=== PATIENT | male | born 1940 | race Caucasian/White ===

== ENCOUNTER 2024-10-22 08:41 | Day surgery (SDC) | payer MEDICARE ==
[~2024-10-22 08:41] MED LIST: LACTATED RINGERS 1,000 ML IV SCH
[2024-10-22 09:12] VITALS: TEMP 96.8
[2024-10-22] MEDS ORDERED: methylPREDNISolone ACETATE 80 MG/ML 1 ML VIAL ONE (09:45)
[2024-10-22] MEDS ORDERED: IOPAMIDOL M300 15ML VIAL ONE (09:45)
[2024-10-22 10:08] VITALS: BP 141/77; PULSE 72; RESP 18
--- NOTE | 2024-10-22 10:09 | FL ---
EXAMINATION TYPE: FL guided pain mgmt statistic DATE OF EXAM: 10/22/2024 CLINICAL INDICATION: Male, 84 years old with history of Lumbar Epid Inj; PHH, pain TECHNIQUE: Fluoroscopy. COMPARISON: None. FINDINGS: Fluoroscopic guidance was provided during pain relief procedure performed by Dr. Smith . A total of 41.1 seconds of fluoroscopic time was utilized during the procedure and one image was acqu ired. Image acquired shows needle localization the lumbar spine with contrast injection. Degeneration changes of the visualized joints. Total DAP: 0.29316 mGy x m2. IMPRESSION: As Above. [facility], , 10/22/2024 10:07 AM
--- NOTE | 2024-10-22 10:10 | P.PCN ---
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 3-lumbar spinal stenosis POSTOPERATIVE DIAGNOSIS: 1-lumbar degenerative disc disease. 2-lumbar spondylosis with facet arthropathy without myelopathy. 3-lumbar spinal stenosis. PROCEDURE Injection of radio contrast material into L3-4 interspace, interpretation of epidurogram, injection of steroid at L3-4 epidural space under fluoroscopic guidance. ANESTHESIA: Lidocaine 1% subcutaneously. In OR continuous pulse ox, EKG, blood pressure and verbal communication was maintained with the patient. EBL: Minimal PROCEDURE INDICATION: Before the procedure were discussed with the patient detailed procedure, alternatives, complications including infection, bleeding, nerve damage, paralysis all of which could be permanent. Patient understands and all questions were answered. PROCEDURE DESCRIPTION : After getting consent, patient in OR in prone position. Back was prepped with chlorhexidine and draped in sterile fashion. After injecting 10 mL of 1% lidocaine subcutaneously, a 20-gauge Tuohy needle was introduced at L3-4 interspace with loss of resistance technique using a syringe filled with air. Negative CSF, negative blood, negative paresthesia. Needle position was confirmed with AP and lateral view of the fluoroscope. After repeat negative aspiration 2 mL of Omnipaque 200 water soluble contrast was injected. Contrast was noted in the epidural space. No contrast was noted into intrathecal or intravascular space. After repeat negative aspiration 6 mL solution was injected intermittently which consists of 5 mL of preservative-free normal saline mixed with 1 mL of 80 mg Depo-Medrol. Needle was withdrawn intact. Skin was cleansed and Band-Aids was applied. DISPOSITION / PLANS: The patient tolerated the procedure well. No complication. The patient was placed in a supine position and transferred to the recovery area in a stable condition for observation. There was no evidence of lower extremity motor or sensory deficit after the procedure. Patient was discharged from the recovery room after meeting discharge criteria. Home discharge instructions were given to the patient by the staff. The patient was reexamined prior to discharge. The patient will schedule a follow up in the clinic in 2-4 weeks.
== END 2024-10-22 10:30 | disposition home or self-care (01) ==
LOC: ORPAIN 08:41
PROVIDERS: ATTEND Pain Medicine Interventional Pain Medicine
DX: M48.061 Spinal stenosis, lumbar region without neurogenic claudication (principal); M47.816 Spondylosis without myelopathy or radiculopathy, lumbar region; M51.369 Other intervertebral disc degeneration, lumbar region without mention of lumbar back pain or lower extremity pain
CPT/HCPCS: 62323; Q9967; J1010

== ENCOUNTER → 2024-10-31 | Outpatient (CLI) | payer MEDICARE ==
[2024-10-31 18:37] LABS: Basophils # (A) 0.06 X 10*3/uL (0.00-0.10); Basophils % (A) 0.6 %; Eosinophils # (A) 0.05 X 10*3/uL (0.04-0.35); Eosinophils % (A) 0.5 %; HCT 43.3 % (39.6-50.0); HGB 14.3 g/dL (13.0-17.0); Lymphocytes # (A) 1.85 X 10*3/uL (0.90-5.00); Lymphocytes % (A) 17.2 %; MCH 31.8 pg (27.0-32.0); MCV 96.4 FL (80.0-97.0); Mean Platelet Volume 10.8 FL (9.5-12.2); Monocytes # (A) 0.97 X 10*3/uL (0.20-1.00); NRBC Per 100 WBC 0 X 10*3/uL (0.00-0.01); Neutrophils # (A) 7.75 X 10*3/uL (1.80-7.70); Neutrophils % (A) 72.1 %; Platelet Count 238 X 10*3/uL (140-440); RBC 4.49 X 10*6/uL (4.40-5.60); RDW 13.6 % (11.5-14.5); WBC 10.74 X 10*3/uL (4.50-10.00)
[2024-10-31 18:51] LABS: BUN/Creat Ratio 29.43 Ratio (12.00-20.00); Blood Urea Nitrogen 20.6 mg/dL (9.0-27.0); Calcium 8.8 mg/dL (8.7-10.3); Carbon Dioxide 23.9 mmol/L (21.6-31.8); Chloride 108 mmol/L (96-109); Glucose 135 mg/dL (70-110); Sodium 143 mmol/L (135-145)
[2024-10-31 19:07] LABS: INR 0.97 sec (0.93-1.11); Prothrombin Time 11.1 sec (9.9-11.9)
== END | disposition home or self-care (01) ==
LOC: LABPAT 13:28
PROVIDERS: ATTEND Orthopaedic Surgery
DX: Z01.818 Encounter for other preprocedural examination (principal); S32.009A Unspecified fracture of unspecified lumbar vertebra, initial encounter for closed fracture; I10 Essential (primary) hypertension; I51.7 Cardiomegaly; R58 Hemorrhage, not elsewhere classified; X58.XXXA Exposure to other specified factors, initial encounter; Z79.899 Other long term (current) drug therapy; Z22.322 Carrier or suspected carrier of Methicillin resistant Staphylococcus aureus
CPT/HCPCS: 80048; 85025; 85610; 86850; 86900; 86901; 87070; 93005

== ENCOUNTER → 2024-12-06 | Outpatient (CLI) | payer MEDICARE ==
--- NOTE | 2024-12-06 16:34 | BD ---
EXAMINATION TYPE: Axial Bone Density DATE OF EXAM: 12/06/2024 CLINICAL HISTORY: 84 years old Male. ICD-10 CODE: M85.88 DISORDER OF BONE , Additional History: Height: 66.5 Weight: 212.2 FRAX RISK QUESTIONS: Alcohol (3 or more units per day): no Family History (Parent hip fracture): no Glucocorticoids (More than 3mos): no (Ex: prednisone, prednisolone, methylprednisolone, dexamethasone, and hydrocortisone). History of Fracture in Adulthood: knee lt wrist, finger Secondary Osteoporosis: 1. Type 1 Diabetes: no 2. Hyperthyroidism: no 3. Menopause before 45: na 4. Malnutrition: no 5. Chronic liver disease: no Rheumatoid Arthritis: no Current Tobacco Use: no RISK FACTORS HISTORY OF: Hip Fracture (Right/Left): no Spine Fracture: no History of Wrist Fracture: lt wrist When: child Surgery to Spine/Hip(right/left)/Wrist (right/left): no MEDICATIONS: Thyroid Medications: no Osteoporosis Medications: EXAM MEASUREMENTS: Bone mineral densitometry was performed using the [employer] System. Bone mineral density as measured about the Lumbar spine is: ----- L1-L4(G/cm2): 1.060 T Score Values are as follows: ----- L1: -2.7 ----- L2: 0.3 ----- L3: -0.6 ----- L4: -0.6 ----- L1-L4: -1.0 Z Score Values are as follows: ----- L1: -2.8 ----- L2: 0.2 ----- L3: -0.8 ----- L4: -0.8 ----- L1-L4: -1.1 Baseline Study Bone mineral density about the R hip (g/cm2): 0.877 Bone mineral density about the L hip (g/cm2): 0.862 T Score values are as follows: -----R Neck: -1.8 -----L Neck: -1.9 -----R Total: -1.0 -----L Total: -1.2 Z Score values are as follows: -----R Neck: -0.9 -----L Neck: -0.9 -----R Total: -0.5 -----L Total: -0.6 Baseline Study FRAX%s: The graph provided illustrates a 8.2% chance for a major osteoporotic fx and a 3.5% chance fo r the hips probability for fx in 10 years time. IMPRESSION: Osteopenia (T Score between -2.5 and -1). There is slightly increased risk of fracture and the patient may be considered for treatment. Re-Screen 2-5 years. NOTE: T-SCORE=SD OF THE YOUNG ADULT MEAN. [facility], , 12/06/2024 4:32 PM
== END | disposition home or self-care (01) ==
LOC: RADBDWWP 15:18
PROVIDERS: ATTEND Orthopaedic Surgery
DX: M85.88 Other specified disorders of bone density and structure, other site (principal); M85.89 Other specified disorders of bone density and structure, multiple sites
CPT/HCPCS: 77080